=== PATIENT | male | born 1990 | race Hispanic/Latino ===

== ENCOUNTER 2019-02-25 13:07 | Emergency (ER) | payer MEDICAID ==
[2019-02-25] MEDS ORDERED: TETANUS/DIPHTHERIA TOXOID [ADULT] 0.5 ML VIAL IM ONE (13:20)
[2019-02-25] MEDS ORDERED: BUPIVACAINE/PF 0.5% 30ML VIAL ONE (13:25)
[2019-02-25] MEDS ORDERED: LIDOCAINE HCL 1% 20 ML VIAL ONE (13:25)
== END 2019-02-25 14:19 | disposition home or self-care (01) ==
LOC: EDH 13:07
DX: S61.300A Unspecified open wound of right index finger with damage to nail, initial encounter (principal); W23.0XXA Caught, crushed, jammed, or pinched between moving objects, initial encounter; Y93.89 Activity, other specified; Y92.89 Other specified places as the place of occurrence of the external cause; Y99.8 Other external cause status
CPT/HCPCS: 11730; 73140; 90471; 90714; 99284; J3490

== ENCOUNTER 2022-06-23 03:50 | Emergency (ER) | payer MEDICAID, OTHER ==
[~2022-06-23] VITALS: Ht 175.3 cm; Wt 85.3 kg
[2022-06-23 03:53] VITALS: BP 138/87
[2022-06-23] MEDS ORDERED: IBUP-2070 PO (04:15)
[2022-06-23] MEDS ORDERED: ACET-2079 PO (04:15)
[2022-06-23] MEDS ORDERED: KETOROLAC 60 MG VIAL (30MG/ML) IM ONE (04:30)
== END 2022-06-23 05:32 | disposition home or self-care (01) ==
LOC: EDH 03:50
DX: S43.421A Sprain of right rotator cuff capsule, initial encounter (principal); X58.XXXA Exposure to other specified factors, initial encounter; Y93.89 Activity, other specified; Y92.89 Other specified places as the place of occurrence of the external cause; Y99.8 Other external cause status
CPT/HCPCS: 99283; 73030; 96372; J1885

== ENCOUNTER 2024-01-09 17:17 | Emergency (ER) | payer OTHER ==
[~2024-01-09] VITALS: Ht 175.3 cm; Wt 79.4 kg
[~2024-01-09 17:17] MED LIST: ACET-2079 PO; IBUP-2070 PO
[2024-01-09 17:28] VITALS: BP 146/83; PULSE 79; RESP 16
[2024-01-09] MEDS ORDERED: IBUP-2071 PO (18:24)
[2024-01-09] MEDS: NEOMY SULF/BACITRA/POLYMYXIN B 1 EACH PACKET TP ONE (18:48)
[2024-01-09] MEDS: IBUPROFEN 800 MG TAB PO ONE (18:48)
[2024-01-09] MEDS: TETANUS/DIPHTHERIA TOXOID [ADULT] 0.5 ML VIAL IM ONE (18:49)
[2024-01-09] MEDS: LIDOCAINE HCL 1% 20 ML VIAL INJ SCH (18:50)
== END 2024-01-09 19:13 | disposition home or self-care (01) ==
LOC: EDH 17:17
DX: S51.812A Laceration without foreign body of left forearm, initial encounter (principal); W26.0XXA Contact with knife, initial encounter; Y93.89 Activity, other specified; Y92.89 Other specified places as the place of occurrence of the external cause; Y99.8 Other external cause status
CPT/HCPCS: 12002; 90471; 90714; 96372

== ENCOUNTER 2024-02-28 06:27 | Inpatient (IN) | payer OTHER ==
[~2024-02-28] VITALS: Ht 175.3 cm; Wt 78.9 kg
[2024-02-28] VITALS (20 sets, daily range): BP systolic 115–164; BP diastolic 50–85; PULSE 67–91; RESP 16–24
[~2024-02-28 06:27] MED LIST changes: +IBUP-2071 PO
[2024-02-28] MEDS: ONDANSETRON 4MG INJ IVP ONE (06:50)
[2024-02-28] MEDS: 0.9%NACL 1000ML 1,000 ML IV ONE (06:51)
[2024-02-28 06:56] LABS: APPEARANCE,URINE CLEAR (CLEAR); BILIRUBIN,URINE NEGATIVE (NEGATIVE); COLOR,URINE YELLOW (YELLOW); GLUCOSE, URINE (UA) NEGATIVE (NEGATIVE); KETONES,URINE 5 mg/dL (NEGATIVE); LEUKOCYTE ESTERASE ,URINE NEGATIVE Leu/uL (NEGATIVE); MUCUS,URINE RARE LPF (None Seen); NITRATE,URINE NEGATIVE (NEGATIVE); OCCULT BLOOD,URINE NEGATIVE (NEGATIVE); PH,URINE 5.5 (5.0-8.0); PROTEIN,URINE 10 mg/dL (NEGATIVE); UROBILINOGEN,URINE 0.2 mg/dL (0.2-1.0); WBC,URINE 0-1 /HPF (0-1)
[2024-02-28 07:02] LABS: HEMATOCRIT 39.2 % (42-54); MEAN CORPUSCULAR HEMOGLOBIN 28.9 pg (27.0-33.0); MEAN CORPUSCULAR HGB CONC 34.7 g/dL (32.0-36.0); MEAN CORPUSCULAR VOLUME 83.4 fL (79-99); PLATELET COUNT (AUTO) 296 K/uL (130-400); RED CELL DISTRIBUTION WIDTH 11.9 % (11.0-15.5); WHITE BLOOD COUNT (AUTO) 12.8 K/uL (4.8-10.8)
[2024-02-28 07:31] LABS: ALBUMIN 3.8 g/dL (3.5-5.0); BILIRUBIN,TOTAL 0.7 mg/dL (0.2-1.0); CREATININE 1.1 mg/dL (0.5-1.3); POTASSIUM 4.2 mmol/L (3.5-5.1)
[2024-02-28] MEDS ORDERED: IOHEXOL 350 MG/ML 100ML INFUS..BTL IV ONE (08:03)
[2024-02-28] MEDS: MORPHINE 4 MG SYG IVP ONE (08:04)
[2024-02-28] MEDS: ZOSYN 3.375GM +NS 50ML IV ONE (09:28)
[2024-02-28 09:32] LABS: EOSINOPHILS % (MANUAL) 1 % (1-6); LYMPHOCYTES % (MANUAL) 8 % (22-44); MONOCYTES % (MANUAL) 5 % (2-9); SEGMENTED NEUTROPHILS % 86 % (40-70); TOTAL CELLS COUNTED 100
[2024-02-28 09:33] LABS: PLATELET MORPHOLOGY COMMENT ADEQUATE
[2024-02-28 09:35] LABS: MAN.DIFF COMMENT-IMPRESSION MANUAL DIFFERENTIAL
[2024-02-28] MEDS ORDERED: ONDANSETRON 4MG INJ IVP PRN (10:30)
[2024-02-28] MEDS ORDERED: ACETAMINOPHEN 325 MG TAB PO PRN (10:30)
[2024-02-28] MEDS: DEXTROSE 5 % AND 0.9 % NACL 1,000 ML IV SCH (11:07)
[2024-02-28] MEDS ORDERED: SUCCINYLCHOLINE CHLORIDE 20 MG/ML 10 ML VIAL ONE (13:52)
[2024-02-28] MEDS ORDERED: MIDAZOLAM HCL 1 MG/ML 2ML VIAL ONE (13:52)
[2024-02-28] MEDS ORDERED: NEOSTIGMINE METHYLSULFATE 1MG/ML IV ONE (13:52)
[2024-02-28] MEDS ORDERED: ONDANSETRON 4MG INJ ONE (13:52)
[2024-02-28] MEDS ORDERED: DEXAMETHASONE SOD PHOSPHATE 10MG/ML 1ML VIAL ONE (13:52)
[2024-02-28] MEDS ORDERED: GLYCOPYRROLATE 0.2 MG/ML 5 ML VIAL ONE (13:52)
[2024-02-28] MEDS ORDERED: PROPOFOL 10 MG/ML 20ML VIAL IV ONE (13:52)
[2024-02-28] MEDS ORDERED: LIDOCAINE PF 100MG/5ML (2%) SYRINGE 5ML ONE (13:52)
[2024-02-28] MEDS ORDERED: FENTANYL CITRATE PF 50 MCG/1 ML 2ML VIAL ONE ×2 (13:53→17:32)
[2024-02-28] MEDS ORDERED: LIDOCAINE HCL 1% 20 ML VIAL ONE (15:39)
[2024-02-28] MEDS ORDERED: BUPIVACAINE/PF 0.25% 30ML VIAL IJ ONE (15:39)
[2024-02-28] MEDS ORDERED: LIDOCAINE 1%-EPI 1:100,000 20 ML VIAL ONE (17:40)
[2024-02-28] MEDS ORDERED: MEPERIDINE-PF 25 MG/ML SYG ONE ×2 (17:50→18:16)
[2024-02-28] MEDS: LIDOCAINE 1%-EPI 1:100,000 20 ML VIAL IJ ONE (18:13)
[2024-02-28] MEDS: ONDANSETRON 4MG INJ ONE (19:05)
[2024-02-28] MEDS: MEPERIDINE-PF 25 MG/ML SYG IVP ONE ×2 (19:05→19:43)
[2024-02-28] MEDS: MEPERIDINE-PF 25 MG/ML SYG ONE (19:23)
[2024-02-28] MEDS: MORPHINE 2 MG SYG IVP PRN (20:59)
[2024-02-28] MEDS ORDERED: HYDROMORPHONE 1 MG INJ IVP PRN (21:00)
[2024-02-28] MEDS: 0.9%NACL 50ML IV SCH (21:07)
[2024-02-28] MEDS: ZOSYN 3.375GM +NS 50ML IVPB SCH (21:07)
[2024-02-28] MEDS: KETOROLAC 30MG VIAL (30MG/ML) IV PRN (23:35)
[2024-02-29] VITALS (9 sets, daily range): BP systolic 100–128; BP diastolic 49–79; PULSE 58–85; RESP 18–19; O2SAT 97–98
[2024-02-29] MEDS: OXYCODONE/ACETAMIN 5/325MG TAB PO PRN (03:57)
[2024-02-29 04:15] LABS: BASOPHILS # (AUTO) 0.02 K/uL (0.00-0.20); BASOPHILS % (AUTO) 0.1 % (0.0-5.0); IMMATURE GRANULOCYTE ABSOLUTE 0.06 K/uL (0-1); LYMPHOCYTES # (AUTO) 0.6 K/uL (1.0-4.8); LYMPHOCYTES % (AUTO) 3.9 % (21.0-51.0); MEAN CORPUSCULAR HEMOGLOBIN 29.2 pg (27.0-33.0); MONOCYTES % (AUTO) 6.4 % (3.0-13.0); NEUTROPHILS # (AUTO) 13.6 K/uL (1.8-7.7); NEUTROPHILS % (AUTO) 89.2 % (40.0-77.0); PLATELET COUNT (AUTO) 291 K/uL (130-400); RED BLOOD CELL COUNT(AUTO) 4.65 MIL/uL (4.50-6.20); RED CELL DISTRIBUTION WIDTH 11.8 % (11.0-15.5); WHITE BLOOD COUNT (AUTO) 15.2 K/uL (4.8-10.8)
[2024-02-29 04:28] LABS: ALBUMIN 3.2 g/dL (3.5-5.0); BILIRUBIN,TOTAL 0.6 mg/dL (0.2-1.0); CREATININE 1.2 mg/dL (0.5-1.3); MAGNESIUM 1.9 mg/dL (1.80-2.40); POTASSIUM 4.5 mmol/L (3.5-5.1); TOTAL PROTEIN, SERUM 7.5 g/dL (6.0-8.3)
[2024-02-29] MEDS ORDERED: MORPHINE 4 MG SYG IVP ONE (10:30)
[2024-02-29] MEDS: NICOTINE 21 MG/ 24 HR PATCH TD ONE (20:52)
[2024-03-01] VITALS (8 sets, daily range): BP systolic 99–127; BP diastolic 58–79; PULSE 56–79; RESP 16–20; O2SAT 96–97
[2024-03-01 04:47] LABS: HEMATOCRIT 35.2 % (42-54); MEAN CORPUSCULAR HEMOGLOBIN 29.1 pg (27.0-33.0); MEAN CORPUSCULAR HGB CONC 33.5 g/dL (32.0-36.0); MEAN CORPUSCULAR VOLUME 86.9 fL (79-99); RED BLOOD CELL COUNT(AUTO) 4.05 MIL/uL (4.50-6.20); WHITE BLOOD COUNT (AUTO) 10.4 K/uL (4.8-10.8)
[2024-03-01 05:04] LABS: CREATININE 1.3 mg/dL (0.5-1.3); MAGNESIUM 2.1 mg/dL (1.80-2.40); POTASSIUM 4.6 mmol/L (3.5-5.1)
[2024-03-01] MEDS: NICOTINE 21 MG/ 24 HR PATCH TD SCH (09:06)
[2024-03-01 12:41] LABS: INR <= 0.93 (0.85-1.15); PROTHROMBIN TIME 10.8 SEC (9.6-11.6)
[2024-03-01] MEDS: LACTULOSE 20 GM/30 ML UDCUP PO PRN (12:55)
[2024-03-02] VITALS (7 sets, daily range): BP systolic 112–143; BP diastolic 60–88; PULSE 61–93; RESP 17–20; O2SAT 98
[2024-03-02 06:00] LABS: BASOPHILS # (AUTO) 0.04 K/uL (0.00-0.20); BASOPHILS % (AUTO) 0.5 % (0.0-5.0); EOSINOPHILS % (AUTO) 2.7 % (0.0-8.0); HEMATOCRIT 39.2 % (42-54); IMMATURE GRANULOCYTE ABSOLUTE 0.03 K/uL (0-1); LYMPHOCYTES # (AUTO) 1.2 K/uL (1.0-4.8); LYMPHOCYTES % (AUTO) 15.8 % (21.0-51.0); MEAN CORPUSCULAR HEMOGLOBIN 29.2 pg (27.0-33.0); MEAN CORPUSCULAR HGB CONC 33.4 g/dL (32.0-36.0); MEAN CORPUSCULAR VOLUME 87.3 fL (79-99); MONOCYTES # (AUTO) 0.7 K/uL (0.1-1.0); MONOCYTES % (AUTO) 9.8 % (3.0-13.0); NEUTROPHILS # (AUTO) 5.2 K/uL (1.8-7.7); NEUTROPHILS % (AUTO) 70.8 % (40.0-77.0); PLATELET COUNT (AUTO) 328 K/uL (130-400); RED BLOOD CELL COUNT(AUTO) 4.49 MIL/uL (4.50-6.20); RED CELL DISTRIBUTION WIDTH 11.9 % (11.0-15.5); WHITE BLOOD COUNT (AUTO) 7.4 K/uL (4.8-10.8)
[2024-03-02 06:26] LABS: BILIRUBIN,TOTAL 0.4 mg/dL (0.2-1.0); CREATININE 1.2 mg/dL (0.5-1.3); MAGNESIUM 1.9 mg/dL (1.80-2.40); POTASSIUM 3.7 mmol/L (3.5-5.1); TOTAL PROTEIN, SERUM 7.4 g/dL (6.0-8.3)
[2024-03-02] MEDS: FAMOTIDINE 20MG TAB PO SCH (20:24)
[2024-03-03 03:37] VITALS: BP 125/60; PULSE 65; RESP 20
[2024-03-03 07:49] VITALS: BP 136/72; PULSE 64; RESP 18
[2024-03-03 11:24] VITALS: BP 107/60; PULSE 63; RESP 18
== END 2024-03-03 14:28 | disposition home or self-care (01) | DRG 399 ==
LOC: EDH 06:27 → EDHIP 10:25 → 4CH 17:18
PROVIDERS: ADMIT Internal Medicine Infectious Disease; ATTEND Internal Medicine Infectious Disease
PROC: 0DTJ4ZZ Resection of Appendix, Percutaneous Endoscopic Approach (ICD-10-PCS; principal; 2024-02-28 17:25)
DX: K35.32 Acute appendicitis with perforation, localized peritonitis, and gangrene, without abscess (principal); K59.00 Constipation, unspecified; D72.829 Elevated white blood cell count, unspecified
CPT/HCPCS: 36415; 36569; 71045; 74177; 80048; 80053; 81001; 83690; 83735; 85025; 85027; 85610; 88304; 96365; 96375; A4344; C1894; G0378; J0330; J1100; J1885; J2001; J2175; J2250; J2270; J2405; J2543; J2704; J2710; J3010; J3490; J7030; J7120; Q9967; A4452; A4649; A4930; C1769; J0665; J0690